=== PATIENT | female | born 1955 | race African-American/Black ===

== ENCOUNTER 2017-04-13 05:20 | Day surgery (SDC) | payer BC ==
[2017-04-11 12:30] LABS: HEMATOCRIT 37.2 % (36.0-48.0); HEMOGLOBIN 11.7 g/dL (12-16); MCH 27.1 pg (26.0-34.0); MCHC 31.5 g/dL (31.0-37.0); MCV 86.1 fL (80.0-100.0); MEAN PLATELET VOLUME 10.3 fL (7.4-10.4); RBC 4.32 10x6/uL (4.00-5.40); RDW 13.9 % (11.5-14.5); WBC 4.5 10x3/uL (4.8-10.8)
[2017-04-13 06:27] VITALS: BP 140/81; BMI 32.8
[2017-04-13] MEDS ORDERED: HYDROCODONE-APA1 TAB PO (08:33)
--- NOTE | 2017-04-13 10:05 | NUR ---
IV DC WITH CATHER TIP INTACT
--- NOTE | 2017-04-13 15:13 | OP ---
PATIENT NAME: JOSEF MILLIGAN MEDICAL RECORD: [id number] :59 LOCATION:[facility] ADMISSION DATE: SURGEON: CHINTAN MOHAMUD MD DATE OF OPERATION: 04/13/2017 PREOPERATIVE DIAGNOSIS: Medial meniscus tear of the left knee. POSTOPERATIVE DIAGNOSIS: Medial meniscus tear of the left knee. PROCEDURE: Arthroscopic partial medial meniscectomy of the left knee. SURGEON: Chintan Mohamud MD ANESTHESIA: General. INTRAOPERATIVE COMPLICATIONS: None. 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 OPERATIVE SUMMARY IN DETAIL: After obtaining the appropriate preoperative orthopedic surgery consent as well as anesthetic consultation, evaluation and clearance, the patient was brought to the operating room and placed in supine position. General laryngeal mask was administered, tourniquet was placed about the proximal aspect of the left lower extremity. Left lower extremity was then prepped and draped in routine sterile fashion. Leg was elevated and exsanguinated, tourniquet inflated to 350 mmHg. Routine inferolateral portal was established followed by superomedial portal and inferomedial portal. Diagnostic arthroscopy did reveal the above findings. Combination of an arthroscopic resector as well as a meniscotome were utilized to debride the meniscus to stable meniscal elements both laterally and sent medially to the area of sagittal split. The chondromalacia findings as noted above were seen. The lateral compartment was relatively pristine. Slight chondromalacia patellofemoral joint was noted as well. At this point, the knee was insufflated with 30 cc of 0.25% Marcaine with epinephrine and 80 mg of Depo-Medrol. Arthroscopy portals were closed in routine interrupted fashion using 4-0 Prolene. Sterile dressings were applied. Tourniquet was deflated. The patient was awakened and taken to recovery room in stable condition. All final needle and sponge counts were correct. TRANSINT:[id number] Voice Confirmation ID: [id number] DOCUMENT ID: [id number] CHINTAN MOHAMUD MD at 1513 CC: [id number] DICTATION DATE: 04/13/17 0833 [facility] SPECIALIST: 04/13/17 0912 [facility] 04/13/17 [facility] [address] [place] [address]
== END 2017-04-13 10:00 | disposition home or self-care (01) ==
LOC: D.OPS 05:20 → D.PAN 07:30 → D.OPS 07:30
PROVIDERS: Anesthesiology
DX: S83.242A Other tear of medial meniscus, current injury, left knee, initial encounter (principal); K21.9 Gastro-esophageal reflux disease without esophagitis; E66.01 Morbid (severe) obesity due to excess calories; Z68.32 Body mass index [BMI] 32.0-32.9, adult; M17.12 Unilateral primary osteoarthritis, left knee; Z01.812 Encounter for preprocedural laboratory examination